=== PATIENT | female | born 1945 | race Caucasian/White ===

== ENCOUNTER 2019-06-10 20:22 | Inpatient (IN) | payer MEDICARE, OTHER ==
[2019-06-10] MEDS: HYDROCODONE/APAP (10/325) TAB PO (20:39)
[2019-06-10] MEDS: ONDANSETRON (ODT) 4 MG TAB ODT (20:39)
[2019-06-10 21:29] LABS: ADD MAN DIFF? NO
[2019-06-10 21:35] LABS: ADD UMIC NO; UR ASCORBIC ACID NEGATIVE (NEGATIVE); UR BILIRUBIN (Dip) NEGATIVE (NEGATIVE); UR BLOOD (Dip) NEGATIVE (NEGATIVE); UR CLARITY CLEAR (CLEAR); UR COLOR STRAW (YELLOW); UR GLUCOSE (Dip) NEGATIVE (NEGATIVE); UR KETONES (Dip) NEGATIVE (NEGATIVE); UR LEUKOCYTE ESTERASE (Dip) NEGATIVE Leu/ul (NEGATIVE); UR NITRITE (Dip) NEGATIVE (NEGATIVE); UR SPECIFIC GRAVITY (Dip) 1.008 (1.003-1.030); UR TOTAL PROTEIN (Dip) NEGATIVE (NEGATIVE); UR UROBILINOGEN (Dip) NEGATIVE (NEGATIVE)
[2019-06-10 21:51] LABS: INR 1.05; PROTIME 13.8 Sec (11.9-14.9); PT RATIO 1.1
[2019-06-10 21:52] LABS: PARTIAL THROMBOPLASTIN TIME 22.1 Sec (23.0-35.0)
[2019-06-10 21:53] LABS: ANION GAP 6 (5-13); BLOOD UREA NITROGEN 18 mg/dl (7-20); CARBON DIOXIDE 27 mmol/L (21-31); CHLORIDE 108 mmol/L (97-110); CREATININE 0.72 mg/dl (0.44-1.00); GLUCOSE 108 mg/dl (70-220); SODIUM 141 mmol/L (135-144)
[2019-06-10] MEDS ORDERED: ONDANSETRON 4 MG INJ IV ×2 (22:00→22:30)
[2019-06-10] MEDS ORDERED: ACETAMINOPHEN 325 MG TAB PO ×2 (22:00→22:30)
[2019-06-10 22:04] LABS: TROPONIN-I < 0.012 ng/ml (0.000-0.120)
[2019-06-10 22:17] LABS: BASOPHILS % 0.1 % (0.0-2.0); EOSINOPHILS # 0.1 10^3/ul (0.0-0.5); EOSINOPHILS % 0.9 % (0.0-7.0); HEMATOCRIT 36.8 % (37.0-47.0); HEMOGLOBIN 12.1 g/dl (12.0-16.0); LYMPHOCYTES # 1.1 10^3/ul (0.8-2.9); LYMPHOCYTES % 13.2 % (15.0-51.0); MEAN CORPUSCULAR HEMOGLOBIN 32.2 pg (29.0-33.0); MEAN CORPUSCULAR HGB CONC 32.9 g/dl (32.0-37.0); MEAN CORPUSCULAR VOLUME 97.9 fl (82.0-101.0); MEAN PLATELET VOLUME 9.2 fl (7.4-10.4); MONOCYTE # 0.5 10^3/ul (0.3-0.9); MONOCYTES % 6.6 % (0.0-11.0); NEUTROPHIL # 6.5 10^3/ul (1.6-7.5); NEUTROPHILS % 78.7 % (39.0-77.0); PLATELET COUNT 253 10^3/UL (140-415); RED BLOOD COUNT 3.76 10^6/ul (4.20-5.40)
[2019-06-10 22:17] LABS: WHITE BLOOD COUNT 8.2 10^3/ul (4.8-10.8)
[2019-06-10] MEDS ORDERED: NACL 0.9% 3 ML SYG IV (22:30)
[2019-06-10] MEDS ORDERED: DOCUSATE SODIUM 100 MG CAP PO (22:30)
[2019-06-10] MEDS ORDERED: HYDROCODONE/APAP (5/325) TAB PO (22:30)
[2019-06-11] MEDS: SOD CHLORIDE 0.9% 1,000 ML IV ×2 (02:15→12:30)
[2019-06-11] MEDS: morphine 2 MG INJ IV (04:15)
[2019-06-11 05:33] LABS: ADD MAN DIFF? NO
[2019-06-11 05:43] LABS: WHITE BLOOD COUNT 7.8 10^3/ul (4.8-10.8)
[2019-06-11 05:43] LABS: BASOPHILS % 0.3 % (0.0-2.0); EOSINOPHILS # 0.1 10^3/ul (0.0-0.5); EOSINOPHILS % 0.9 % (0.0-7.0); HEMATOCRIT 34.1 % (37.0-47.0); LYMPHOCYTES # 1.5 10^3/ul (0.8-2.9); LYMPHOCYTES % 18.9 % (15.0-51.0); MEAN CORPUSCULAR HEMOGLOBIN 32.1 pg (29.0-33.0); MEAN CORPUSCULAR HGB CONC 32.3 g/dl (32.0-37.0); MEAN CORPUSCULAR VOLUME 99.4 fl (82.0-101.0); MEAN PLATELET VOLUME 9.5 fl (7.4-10.4); MONOCYTE # 0.6 10^3/ul (0.3-0.9); NEUTROPHIL # 5.6 10^3/ul (1.6-7.5); NEUTROPHILS % 71.5 % (39.0-77.0); PLATELET COUNT 232 10^3/UL (140-415); RED BLOOD COUNT 3.43 10^6/ul (4.20-5.40); RED CELL DISTRIBUTION WIDTH 12.9 % (11.5-14.5)
[2019-06-11 06:05] LABS: HEMOGLOBIN A1C 5.1 % (0-5.9)
[2019-06-11 06:09] LABS: ALANINE AMINOTRANSFERASE 20 IU/L (13-69); ALBUMIN 3.3 g/dl (3.3-4.9); ALBUMIN/GLOBULIN RATIO 1.13; ALKALINE PHOSPHATASE 56 IU/L (42-121); ANION GAP 5 (5-13); ASPARTATE AMINO TRANSFERASE 18 IU/L (15-46); BILIRUBIN,INDIRECT 0.7 mg/dl (0-1.1); BILIRUBIN,TOTAL 0.7 mg/dl (0.2-1.3); BLOOD UREA NITROGEN 16 mg/dl (7-20); CALCIUM 8.5 mg/dl (8.4-10.2); CARBON DIOXIDE 30 mmol/L (21-31); CHLORIDE 106 mmol/L (97-110); CREATININE 0.74 mg/dl (0.44-1.00); GLUCOSE 95 mg/dl (70-220); MAGNESIUM 2.1 mg/dl (1.7-2.5); POTASSIUM 3.5 mmol/L (3.5-5.1); SODIUM 141 mmol/L (135-144); TOTAL PROTEIN 6.2 g/dl (6.1-8.1)
[2019-06-11] MEDS: LEVOTHYROXINE 25 MCG TAB PO (08:24)
[2019-06-11] MEDS: HYDROmorphONE 0.5 MG/0.5 ML SYG IV (09:17)
[2019-06-11] MEDS ORDERED: GLYCOPYRROLATE 0.4 MG INJ (12:21)
[2019-06-11] MEDS ORDERED: MIDAZOLAM 1 MG/ML 2 ML INJ (12:21)
[2019-06-11] MEDS ORDERED: ONDANSETRON 4 MG INJ (12:21)
[2019-06-11] MEDS ORDERED: NEOSTIGMINE 3 MG/3 ML SYRINGE (12:21)
[2019-06-11] MEDS ORDERED: ROPIVACAINE 0.5 % 30 ML VIAL (12:21)
[2019-06-11] MEDS ORDERED: CEFAZOLIN 1 GM INJ (12:21)
[2019-06-11] MEDS ORDERED: FENTAnyl 50 MCG/ML VIAL (12:21)
[2019-06-11] MEDS ORDERED: ROCURONIUM 50 MG INJ (12:21)
[2019-06-11] MEDS ORDERED: DEXAMETHASONE 4 MG/ML 5 ML INJ (12:21)
[2019-06-11] MEDS ORDERED: PROPOFOL 20 ML (12:21)
[2019-06-11] MEDS: POLYMYXIN/BACITRACIN 1L IRRIG IRR (14:47)
[2019-06-11] MEDS: MEPERIDINE 25 MG INJ IV (15:23)
[2019-06-11] MEDS: ONDANSETRON 4 MG INJ IV (15:24)
[2019-06-11] MEDS ORDERED: oxyCODONE 5 MG TAB PO ×2 (15:30)
[2019-06-11] MEDS ORDERED: hydrALAzine 20 MG INJ IV (15:30)
[2019-06-11] MEDS ORDERED: NACL 0.9% 3 ML SYG IV (15:30)
[2019-06-11] MEDS ORDERED: DIPHENHYDRAMINE 50 MG INJ IV ×2 (15:30)
[2019-06-11] MEDS ORDERED: OXYCODONE/ACETAMINOPHEN (5/325) TAB PO ×2 (15:30)
[2019-06-11] MEDS ORDERED: ALBUTEROL 0.083% (NEB) 2.5 MG/3 ML AMP HHN (15:30)
[2019-06-11] MEDS ORDERED: FENTAnyl 50 MCG/ML VIAL IV ×3 (15:30)
[2019-06-11] MEDS ORDERED: MIDAZOLAM 1 MG/ML 2 ML INJ IV (15:30)
[2019-06-11] MEDS ORDERED: IPRATROPIUM (NEB) 0.5 MG/2.5 ML AMP HHN (15:30)
[2019-06-11] MEDS ORDERED: TRIMETHOBENZAMIDE 100 MG/ML VIAL IM (15:30)
[2019-06-11] MEDS ORDERED: EPHEDrine 25 MG/5 ML SYG IV (15:30)
[2019-06-11] MEDS ORDERED: LABETALOL HCL 20MG INJ IV (15:30)
[2019-06-11] MEDS ORDERED: HYDROmorphONE 1 MG/5 ML IV SYRINGE IV ×3 (15:30)
[2019-06-11] MEDS ORDERED: HYDROmorphONE 1 MG/ML SYG IV (15:30)
[2019-06-11] MEDS ORDERED: BISACODYL 10 MG SUPP PR (15:30)
[2019-06-11] MEDS ORDERED: NA PHOSPHATE/BIPHOS 133 ML ENEMA PR (15:30)
[2019-06-11] MEDS ORDERED: NALOXONE (0.4 MG/ML) INJ IV (15:30)
[2019-06-11] MEDS ORDERED: MAGNESIUM HYDROXIDE 30ML CUP PO (15:30)
[2019-06-11] MEDS ORDERED: SENNA/DOCUSATE NA (8.6MG/50MG) TAB PO (15:30)
[2019-06-11] MEDS: DOCUSATE SODIUM 100 MG CAP PO (16:02)
[2019-06-11] MEDS: CEFAZOLIN 2 GM/50 ML (PMX) 50 ML IVPB ×2 (16:03→23:00)
[2019-06-11] MEDS: LACTATED RINGER'S 1,000 ML IV (16:55)
[2019-06-11] MEDS: OLANZAPINE 2.5 MG TAB PO (21:56)
[2019-06-11] MEDS: ACETAMINOPHEN 500 MG TAB PO (21:56)
[2019-06-12] MEDS: SOD CHLORIDE 0.9% 1,000 ML IV ×2 (01:00→13:30)
[2019-06-12 04:56] LABS: ADD MAN DIFF? NO
[2019-06-12 05:03] LABS: BASOPHILS % 0.1 % (0.0-2.0); EOSINOPHILS % 0.2 % (0.0-7.0); HEMATOCRIT 27.6 % (37.0-47.0); LYMPHOCYTES # 0.8 10^3/ul (0.8-2.9); LYMPHOCYTES % 8.6 % (15.0-51.0); MEAN CORPUSCULAR HGB CONC 32.6 g/dl (32.0-37.0); MEAN CORPUSCULAR VOLUME 98.2 fl (82.0-101.0); MEAN PLATELET VOLUME 9.5 fl (7.4-10.4); MONOCYTE # 0.6 10^3/ul (0.3-0.9); MONOCYTES % 6.7 % (0.0-11.0); NEUTROPHIL # 7.7 10^3/ul (1.6-7.5); NEUTROPHILS % 84.1 % (39.0-77.0); PLATELET COUNT 148 10^3/UL (140-415); RED BLOOD COUNT 2.81 10^6/ul (4.20-5.40)
[2019-06-12 05:03] LABS: WHITE BLOOD COUNT 9.2 10^3/ul (4.8-10.8)
[2019-06-12 05:19] LABS: ANION GAP 4 (5-13); BLOOD UREA NITROGEN 11 mg/dl (7-20); CALCIUM 8.5 mg/dl (8.4-10.2); CARBON DIOXIDE 28 mmol/L (21-31); CHLORIDE 107 mmol/L (97-110); CREATININE 0.69 mg/dl (0.44-1.00); GLUCOSE 140 mg/dl (70-220); POTASSIUM 3.7 mmol/L (3.5-5.1); SODIUM 139 mmol/L (135-144)
[2019-06-12] MEDS ORDERED: PANTOPRAZOLE (EC) 40 MG TAB PO (06:00)
[2019-06-12 06:33] LABS: MAGNESIUM 1.9 mg/dl (1.7-2.5)
[2019-06-12 06:33] LABS: PHOSPHORUS 3.2 mg/dl (2.5-4.9)
[2019-06-12] MEDS: LEVOTHYROXINE 25 MCG TAB PO (06:36)
[2019-06-12] MEDS: LACTATED RINGER'S 1,000 ML IV (06:37)
[2019-06-12] MEDS: ACETAMINOPHEN 500 MG TAB PO ×3 (06:37→20:39)
[2019-06-12 07:03] LABS: THYROID STIMULATING HORMONE 0.561 MIU/L (0.465-4.680)
[2019-06-12 07:04] LABS: TRIIODOTHYRONINE 0.55 ng/ml (0.97-1.69)
[2019-06-12] MEDS: CEFAZOLIN 2 GM/50 ML (PMX) 50 ML IVPB (08:14)
[2019-06-12 09:12] LABS: ADD UMIC NO; UR ASCORBIC ACID NEGATIVE (NEGATIVE); UR BILIRUBIN (Dip) NEGATIVE (NEGATIVE); UR BLOOD (Dip) NEGATIVE (NEGATIVE); UR CLARITY CLEAR (CLEAR); UR COLOR YELLOW (YELLOW); UR GLUCOSE (Dip) NEGATIVE (NEGATIVE); UR KETONES (Dip) TRACE mg/dL (NEGATIVE); UR LEUKOCYTE ESTERASE (Dip) NEGATIVE Leu/ul (NEGATIVE); UR NITRITE (Dip) NEGATIVE (NEGATIVE); UR TOTAL PROTEIN (Dip) NEGATIVE (NEGATIVE); UR UROBILINOGEN (Dip) NEGATIVE (NEGATIVE)
[2019-06-12] MEDS: DOCUSATE SODIUM 100 MG CAP PO ×2 (09:41→20:37)
[2019-06-12] MEDS: FAMOTIDINE 20 MG TAB PO (09:41)
[2019-06-12] MEDS: ENOXAPARIN 40 MG/0.4 ML SYG SC (09:42)
[2019-06-12] MEDS: morphine 2 MG INJ IV (14:19)
[2019-06-12] MEDS ORDERED: ONDANSETRON 4 MG INJ IV (15:30)
[2019-06-12] MEDS: OLANZAPINE 2.5 MG TAB PO (20:37)
[2019-06-13 05:25] LABS: ADD MAN DIFF? NO
[2019-06-13 05:32] LABS: BASOPHILS % 0.6 % (0.0-2.0); EOSINOPHILS # 0.4 10^3/ul (0.0-0.5); EOSINOPHILS % 4.9 % (0.0-7.0); HEMATOCRIT 24.6 % (37.0-47.0); LYMPHOCYTES # 1.5 10^3/ul (0.8-2.9); LYMPHOCYTES % 20.7 % (15.0-51.0); MEAN CORPUSCULAR HEMOGLOBIN 31.7 pg (29.0-33.0); MEAN CORPUSCULAR HGB CONC 32.5 g/dl (32.0-37.0); MEAN CORPUSCULAR VOLUME 97.6 fl (82.0-101.0); MONOCYTE # 0.6 10^3/ul (0.3-0.9); MONOCYTES % 8.5 % (0.0-11.0); NEUTROPHIL # 4.7 10^3/ul (1.6-7.5); PLATELET COUNT 152 10^3/UL (140-415); RED BLOOD COUNT 2.52 10^6/ul (4.20-5.40); RED CELL DISTRIBUTION WIDTH 13.3 % (11.5-14.5)
[2019-06-13 05:32] LABS: WHITE BLOOD COUNT 7.2 10^3/ul (4.8-10.8)
[2019-06-13] MEDS: LEVOTHYROXINE 25 MCG TAB PO (05:48)
[2019-06-13 05:49] LABS: INR 1.46; PROTIME 17.8 Sec (11.9-14.9); PT RATIO 1.4
[2019-06-13] MEDS: ACETAMINOPHEN 500 MG TAB PO ×3 (05:49→21:37)
[2019-06-13 06:02] LABS: ANION GAP 1 (5-13); BLOOD UREA NITROGEN 12 mg/dl (7-20); CALCIUM 8.1 mg/dl (8.4-10.2); CARBON DIOXIDE 32 mmol/L (21-31); CHLORIDE 108 mmol/L (97-110); GLUCOSE 94 mg/dl (70-220); POTASSIUM 3.1 mmol/L (3.5-5.1); SODIUM 141 mmol/L (135-144)
[2019-06-13] MEDS: FAMOTIDINE 20 MG TAB PO (09:43)
[2019-06-13] MEDS: ENOXAPARIN 40 MG/0.4 ML SYG SC (09:44)
[2019-06-13] MEDS: DOCUSATE SODIUM 100 MG CAP PO ×2 (09:44→21:35)
[2019-06-13] MEDS: BETHANECHOL 25 MG TAB PO (09:44)
[2019-06-13] MEDS: POTASSIUM CHLORIDE (SR) 20 MEQ TAB PO (12:02)
[2019-06-13] MEDS: BISACODYL (EC) 5 MG TAB PO (21:36)
[2019-06-13] MEDS: OLANZAPINE 2.5 MG TAB PO (21:37)
[2019-06-14] MEDS: LEVOTHYROXINE 25 MCG TAB PO (06:26)
[2019-06-14 06:30] LABS: ADD MAN DIFF? NO
[2019-06-14 06:43] LABS: BASOPHILS % 0.6 % (0.0-2.0); EOSINOPHILS # 0.4 10^3/ul (0.0-0.5); EOSINOPHILS % 7.5 % (0.0-7.0); HEMATOCRIT 22.6 % (37.0-47.0); HEMOGLOBIN 7.3 g/dl (12.0-16.0); LYMPHOCYTES # 1.3 10^3/ul (0.8-2.9); LYMPHOCYTES % 25.4 % (15.0-51.0); MEAN CORPUSCULAR HEMOGLOBIN 32.6 pg (29.0-33.0); MEAN CORPUSCULAR HGB CONC 32.3 g/dl (32.0-37.0); MEAN CORPUSCULAR VOLUME 100.9 fl (82.0-101.0); MEAN PLATELET VOLUME 10.1 fl (7.4-10.4); MONOCYTE # 0.5 10^3/ul (0.3-0.9); MONOCYTES % 10.1 % (0.0-11.0); NEUTROPHIL # 2.8 10^3/ul (1.6-7.5); PLATELET COUNT 156 10^3/UL (140-415); RED BLOOD COUNT 2.24 10^6/ul (4.20-5.40); RED CELL DISTRIBUTION WIDTH 13.4 % (11.5-14.5)
[2019-06-14 06:43] LABS: WHITE BLOOD COUNT 5.1 10^3/ul (4.8-10.8)
[2019-06-14 06:59] LABS: INR 1.26; PROTIME 15.9 Sec (11.9-14.9); PT RATIO 1.2
[2019-06-14 07:03] LABS: ANION GAP 1 (5-13); BLOOD UREA NITROGEN 14 mg/dl (7-20); CARBON DIOXIDE 31 mmol/L (21-31); CHLORIDE 108 mmol/L (97-110); CREATININE 0.63 mg/dl (0.44-1.00); GLUCOSE 85 mg/dl (70-220); POTASSIUM 3.7 mmol/L (3.5-5.1); SODIUM 140 mmol/L (135-144)
[2019-06-14] MEDS: DOCUSATE SODIUM 100 MG CAP PO (09:24)
[2019-06-14] MEDS: FAMOTIDINE 20 MG TAB PO (09:25)
[2019-06-14] MEDS: ENOXAPARIN 40 MG/0.4 ML SYG SC (09:26)
== END 2019-06-14 18:40 | DRG 481 ==
LOC: MS1 21:43 → E/R 20:22
PROC: 0QH706Z Insertion of Intramedullary Internal Fixation Device into Left Upper Femur, Open Approach (ICD-10-PCS; principal; 2019-06-11 12:10)
DX: S72.142A Displaced intertrochanteric fracture of left femur, initial encounter for closed fracture (principal); S22.31XA Fracture of one rib, right side, initial encounter for closed fracture; I27.20 Pulmonary hypertension, unspecified; F20.9 Schizophrenia, unspecified; F03.90 Unspecified dementia, unspecified severity, without behavioral disturbance, psychotic disturbance, mood disturbance, and anxiety; E03.9 Hypothyroidism, unspecified; R53.81 Other malaise; M19.90 Unspecified osteoarthritis, unspecified site; R62.7 Adult failure to thrive; Z68.24 Body mass index [BMI] 24.0-24.9, adult; W03.XXXA Other fall on same level due to collision with another person, initial encounter; Y93.01 Activity, walking, marching and hiking; Y92.048 Other place in boarding-house as the place of occurrence of the external cause; Y99.8 Other external cause status
CPT/HCPCS: 70450; 71045; 71100; 72125; 72170; 73500; 73550; 80048; 80053; 81003; 82306; 83036; 83735; 84100; 84439; 84443; 84480; 84484; 85025; 85610; 85730; 86850; 86900; 86901; 87086; 93005; 93306; 97110; 97116; 97162; 97165; 97530; 97535; 99285-25

== ENCOUNTER 2019-06-14 18:59 | Inpatient (IN) | payer MEDICARE, OTHER ==
[2019-06-14] MEDS ORDERED: BISACODYL 10 MG SUPP PR (20:30)
[2019-06-14] MEDS ORDERED: MAGNESIUM HYDROXIDE 30ML CUP PO (20:30)
[2019-06-14] MEDS: DOCUSATE SODIUM 100 MG CAP PO (21:36)
[2019-06-14] MEDS: OLANZAPINE 2.5 MG TAB PO (21:36)
[2019-06-14] MEDS: SENNA TAB PO (21:36)
[2019-06-14] MEDS ORDERED: morphine 2 MG INJ IV (22:30)
[2019-06-14] MEDS ORDERED: BISACODYL (EC) 5 MG TAB PO (22:30)
[2019-06-14] MEDS ORDERED: DIPHENHYDRAMINE 50 MG INJ IV (22:30)
[2019-06-14] MEDS ORDERED: oxyCODONE 5 MG TAB PO (22:30)
[2019-06-14] MEDS ORDERED: DOCUSATE SODIUM 100 MG CAP PO (22:30)
[2019-06-14] MEDS ORDERED: NA PHOSPHATE/BIPHOS 133 ML ENEMA PR (22:30)
[2019-06-14] MEDS ORDERED: NALOXONE (0.4 MG/ML) INJ IV (22:30)
[2019-06-14] MEDS ORDERED: ONDANSETRON 4 MG INJ IV (22:30)
[2019-06-14] MEDS ORDERED: HYDROmorphONE 0.5 MG/0.5 ML SYG IV (22:30)
[2019-06-14 22:52] LABS: ADD UMIC NO; UR ASCORBIC ACID NEGATIVE (NEGATIVE); UR BILIRUBIN (Dip) NEGATIVE (NEGATIVE); UR BLOOD (Dip) NEGATIVE (NEGATIVE); UR CLARITY CLEAR (CLEAR); UR COLOR YELLOW (YELLOW); UR GLUCOSE (Dip) NEGATIVE (NEGATIVE); UR KETONES (Dip) NEGATIVE (NEGATIVE); UR LEUKOCYTE ESTERASE (Dip) NEGATIVE Leu/ul (NEGATIVE); UR NITRITE (Dip) NEGATIVE (NEGATIVE); UR SPECIFIC GRAVITY (Dip) 1.015 (1.003-1.030); UR TOTAL PROTEIN (Dip) NEGATIVE (NEGATIVE); UR UROBILINOGEN (Dip) 2+ mg/dL (NEGATIVE)
[2019-06-15 04:27] LABS: ADD MAN DIFF? NO
[2019-06-15 04:30] LABS: WHITE BLOOD COUNT 4.7 10^3/ul (4.8-10.8)
[2019-06-15 04:30] LABS: BASOPHILS % 0.6 % (0.0-2.0); EOSINOPHILS # 0.4 10^3/ul (0.0-0.5); EOSINOPHILS % 7.9 % (0.0-7.0); HEMATOCRIT 21.9 % (37.0-47.0); HEMOGLOBIN 7.2 g/dl (12.0-16.0); LYMPHOCYTES # 1.2 10^3/ul (0.8-2.9); LYMPHOCYTES % 25.7 % (15.0-51.0); MEAN CORPUSCULAR HEMOGLOBIN 32.6 pg (29.0-33.0); MEAN CORPUSCULAR HGB CONC 32.9 g/dl (32.0-37.0); MEAN CORPUSCULAR VOLUME 99.1 fl (82.0-101.0); MEAN PLATELET VOLUME 9.8 fl (7.4-10.4); MONOCYTE # 0.5 10^3/ul (0.3-0.9); MONOCYTES % 10.9 % (0.0-11.0); NEUTROPHIL # 2.5 10^3/ul (1.6-7.5); NEUTROPHILS % 54.5 % (39.0-77.0); PLATELET COUNT 197 10^3/UL (140-415); RED BLOOD COUNT 2.21 10^6/ul (4.20-5.40); RED CELL DISTRIBUTION WIDTH 13.4 % (11.5-14.5)
[2019-06-15 04:48] LABS: ALANINE AMINOTRANSFERASE 27 IU/L (13-69); ALBUMIN 2.6 g/dl (3.3-4.9); ALBUMIN/GLOBULIN RATIO 0.92; ALKALINE PHOSPHATASE 53 IU/L (42-121); ANION GAP 3 (5-13); ASPARTATE AMINO TRANSFERASE 22 IU/L (15-46); BILIRUBIN,INDIRECT 0.8 mg/dl (0-1.1); BILIRUBIN,TOTAL 0.8 mg/dl (0.2-1.3); BLOOD UREA NITROGEN 10 mg/dl (7-20); CALCIUM 8.2 mg/dl (8.4-10.2); CARBON DIOXIDE 31 mmol/L (21-31); CHLORIDE 106 mmol/L (97-110); GLUCOSE 91 mg/dl (70-220); POTASSIUM 3.7 mmol/L (3.5-5.1); SODIUM 140 mmol/L (135-144); TOTAL PROTEIN 5.4 g/dl (6.1-8.1)
[2019-06-15] MEDS: LEVOTHYROXINE 25 MCG TAB PO (06:02)
[2019-06-15] MEDS: FAMOTIDINE 20 MG TAB PO (08:39)
[2019-06-15] MEDS: DOCUSATE SODIUM 100 MG CAP PO ×2 (08:39→21:19)
[2019-06-15] MEDS: CYANOCOBALAMIN 500 MCG TAB PO (08:39)
[2019-06-15] MEDS: oxyCODONE 5 MG TAB PO (08:39)
[2019-06-15] MEDS: FUROSEMIDE 20 MG TAB PO (08:40)
[2019-06-15] MEDS: ENOXAPARIN 40 MG/0.4 ML SYG SC (08:41)
[2019-06-15 13:54] LABS: IRON 17 ug/dl (35-150)
[2019-06-15 13:55] LABS: CHOLESTEROL 147 mg/dl (100-200)
[2019-06-15 13:55] LABS: CHOL/HDL RATIO 5.2 RATIO; HDL CHOLESTEROL 28 mg/dl (33-92); LDL CHOLESTEROL,CALCULATED 85 mg/dl; TRIGLYCERIDES 170 mg/dl (0-149)
[2019-06-15 14:00] LABS: HEMOGLOBIN A1C 5.4 % (0-5.9)
[2019-06-15] MEDS: ASPIRIN 81 MG TAB PO (14:00)
[2019-06-15 14:03] LABS: % IRON SATURATION 8 % SAT (22-52); TOTAL IRON BINDING CAPACITY 201 ug/dl (241-421)
[2019-06-15 14:31] LABS: FERRITIN 84.9 ng/ml (11.1-264.0)
[2019-06-15 15:01] LABS: FOLATE 8.5 ng/ml (2.8-20.0)
[2019-06-15] MEDS: OLANZAPINE 2.5 MG TAB PO (21:19)
[2019-06-15] MEDS: SENNA TAB PO (21:19)
[2019-06-15] MEDS: ATORVASTATIN 10 MG TAB PO (21:19)
[2019-06-16] MEDS: LEVOTHYROXINE 25 MCG TAB PO (05:46)
[2019-06-16] MEDS: ENOXAPARIN 40 MG/0.4 ML SYG SC (09:08)
[2019-06-16] MEDS: FAMOTIDINE 20 MG TAB PO (09:09)
[2019-06-16] MEDS: CYANOCOBALAMIN 500 MCG TAB PO (09:09)
[2019-06-16] MEDS: FUROSEMIDE 20 MG TAB PO (09:09)
[2019-06-16] MEDS: ASPIRIN 81 MG TAB PO (09:09)
[2019-06-16] MEDS: DOCUSATE SODIUM 100 MG CAP PO (09:09)
[2019-06-16] MEDS: ACETAMINOPHEN 325 MG TAB PO ×2 (12:16→22:14)
[2019-06-16] MEDS ORDERED: HYDROCODONE/APAP (5/325) TAB PO (13:30)
[2019-06-16] MEDS: FERROUS SULFATE (EC) 325 MG TAB PO (14:28)
[2019-06-16] MEDS: DOCUSATE SODIUM 10 MG/ML (10ML CUP) PO (21:03)
[2019-06-16] MEDS: OLANZAPINE 2.5 MG TAB PO (21:03)
[2019-06-16] MEDS: ATORVASTATIN 10 MG TAB PO (21:03)
[2019-06-16] MEDS: SENNA TAB PO (21:03)
[2019-06-17] MEDS: LEVOTHYROXINE 25 MCG TAB PO (06:50)
[2019-06-17] MEDS: CYANOCOBALAMIN 500 MCG TAB PO (09:21)
[2019-06-17] MEDS: FAMOTIDINE 20 MG TAB PO (09:23)
[2019-06-17] MEDS: FUROSEMIDE 20 MG TAB PO (09:25)
[2019-06-17] MEDS: CLOTRIMAZOLE 1% 30 GM CR TOP (09:26)
[2019-06-17] MEDS: ENOXAPARIN 40 MG/0.4 ML SYG SC (09:26)
[2019-06-17] MEDS: ASPIRIN 81 MG TAB PO (09:27)
[2019-06-17] MEDS: DOCUSATE SODIUM 10 MG/ML (10ML CUP) PO ×2 (09:27→20:09)
[2019-06-17] MEDS: ACETAMINOPHEN 325 MG TAB PO (09:38)
[2019-06-17] MEDS: FERROUS SULFATE 60 MG/ML 5ML CUP PO (13:00)
[2019-06-17] MEDS: SENNA/DOCUSATE NA (8.6MG/50MG) TAB PO (17:22)
[2019-06-17] MEDS: OLANZAPINE 2.5 MG TAB PO (20:09)
[2019-06-17] MEDS: SENNA TAB PO (20:09)
[2019-06-17] MEDS: ATORVASTATIN 10 MG TAB PO (20:09)
[2019-06-18] MEDS: LACTULOSE 30ML CUP PO (05:53)
[2019-06-18] MEDS: LEVOTHYROXINE 25 MCG TAB PO (05:53)
[2019-06-18] MEDS: FAMOTIDINE 20 MG TAB PO (08:57)
[2019-06-18] MEDS: CYANOCOBALAMIN 500 MCG TAB PO (08:57)
[2019-06-18] MEDS: ASPIRIN 81 MG TAB PO (08:57)
[2019-06-18] MEDS: DOCUSATE SODIUM 10 MG/ML (10ML CUP) PO ×2 (08:58→20:21)
[2019-06-18] MEDS: ENOXAPARIN 40 MG/0.4 ML SYG SC (08:58)
[2019-06-18] MEDS: FERROUS SULFATE 60 MG/ML 5ML CUP PO ×3 (08:58→20:20)
[2019-06-18] MEDS: CLOTRIMAZOLE 1% 30 GM CR TOP (08:58)
[2019-06-18] MEDS: FUROSEMIDE 20 MG TAB PO (09:00)
[2019-06-18] MEDS ORDERED: CHOLECALCIFEROL 2,000 UNIT CAP PO (13:00)
[2019-06-18 14:38] LABS: HEPATITIS B SURFACE ANTIGEN NEGATIVE (NEGATIVE)
[2019-06-18] MEDS: ASCORBIC ACID 500 MG TAB PO ×2 (14:45→20:20)
[2019-06-18] MEDS: CHOLECALCIFEROL 1,000 UNIT TAB PO (14:45)
[2019-06-18 14:55] LABS: HEPATITIS C VIRAL ANTIBODY NEGATIVE (NEGATIVE)
[2019-06-18] MEDS: ACETAMINOPHEN 325 MG TAB PO (15:58)
[2019-06-18 18:53] LABS: RAPID PLASMA REAGIN NONREACTIVE (NR)
[2019-06-18] MEDS: OLANZAPINE 2.5 MG TAB PO (20:18)
[2019-06-18] MEDS: ATORVASTATIN 10 MG TAB PO (20:18)
[2019-06-18] MEDS: SENNA TAB PO (20:21)
[2019-06-19] MEDS: LEVOTHYROXINE 25 MCG TAB PO (06:23)
[2019-06-19] MEDS: DOCUSATE SODIUM 10 MG/ML (10ML CUP) PO ×3 (08:37→21:00)
[2019-06-19] MEDS: FAMOTIDINE 20 MG TAB PO (08:37)
[2019-06-19] MEDS: CYANOCOBALAMIN 500 MCG TAB PO (08:37)
[2019-06-19] MEDS: FERROUS SULFATE 60 MG/ML 5ML CUP PO ×2 (08:37→20:53)
[2019-06-19] MEDS: ASPIRIN 81 MG TAB PO (08:37)
[2019-06-19] MEDS: CHOLECALCIFEROL 1,000 UNIT TAB PO (08:37)
[2019-06-19] MEDS: FUROSEMIDE 20 MG TAB PO (08:37)
[2019-06-19] MEDS: ASCORBIC ACID 500 MG TAB PO ×2 (08:37→20:53)
[2019-06-19] MEDS: ENOXAPARIN 40 MG/0.4 ML SYG SC (08:38)
[2019-06-19] MEDS: CLOTRIMAZOLE 1% 30 GM CR TOP (08:48)
[2019-06-19] MEDS: ACETAMINOPHEN 325 MG TAB PO (16:08)
[2019-06-19] MEDS: OLANZAPINE 2.5 MG TAB PO (20:53)
[2019-06-19] MEDS: ATORVASTATIN 10 MG TAB PO (20:53)
[2019-06-19] MEDS: SENNA TAB PO (21:00)
[2019-06-20] MEDS: LEVOTHYROXINE 25 MCG TAB PO (05:43)
[2019-06-20 07:01] LABS: ADD MAN DIFF? NO
[2019-06-20 07:32] LABS: BASOPHILS % 0.5 % (0.0-2.0); EOSINOPHILS # 0.1 10^3/ul (0.0-0.5); HEMATOCRIT 24.7 % (37.0-47.0); HEMOGLOBIN 7.8 g/dl (12.0-16.0); LYMPHOCYTES # 1.7 10^3/ul (0.8-2.9); LYMPHOCYTES % 27.7 % (15.0-51.0); MEAN CORPUSCULAR HEMOGLOBIN 32.6 pg (29.0-33.0); MEAN CORPUSCULAR HGB CONC 31.6 g/dl (32.0-37.0); MEAN CORPUSCULAR VOLUME 103.3 fl (82.0-101.0); MEAN PLATELET VOLUME 8.7 fl (7.4-10.4); MONOCYTE # 0.6 10^3/ul (0.3-0.9); MONOCYTES % 10.4 % (0.0-11.0); NEUTROPHIL # 3.5 10^3/ul (1.6-7.5); NEUTROPHILS % 58.7 % (39.0-77.0); PLATELET COUNT 454 10^3/UL (140-415); RED BLOOD COUNT 2.39 10^6/ul (4.20-5.40)
[2019-06-20] MEDS: FUROSEMIDE 20 MG TAB PO (09:00)
[2019-06-20] MEDS: DOCUSATE SODIUM 10 MG/ML (10ML CUP) PO ×2 (10:27→21:02)
[2019-06-20] MEDS: ACETAMINOPHEN 325 MG TAB PO (10:27)
[2019-06-20] MEDS: FAMOTIDINE 20 MG TAB PO (10:28)
[2019-06-20] MEDS: CYANOCOBALAMIN 500 MCG TAB PO (10:28)
[2019-06-20] MEDS: FERROUS SULFATE 60 MG/ML 5ML CUP PO ×2 (10:28→21:02)
[2019-06-20] MEDS: ASCORBIC ACID 500 MG TAB PO ×2 (10:28→21:02)
[2019-06-20] MEDS: CHOLECALCIFEROL 1,000 UNIT TAB PO (10:28)
[2019-06-20] MEDS: ASPIRIN 81 MG TAB PO (10:29)
[2019-06-20] MEDS: ENOXAPARIN 40 MG/0.4 ML SYG SC (10:30)
[2019-06-20] MEDS: CLOTRIMAZOLE 1% 30 GM CR TOP (10:30)
[2019-06-20] MEDS: ATORVASTATIN 10 MG TAB PO (21:01)
[2019-06-20] MEDS: SENNA TAB PO (21:01)
[2019-06-20] MEDS: OLANZAPINE 2.5 MG TAB PO (21:01)
[2019-06-20] MEDS: traMADol 50 MG TAB PO (23:39)
[2019-06-21] MEDS: LEVOTHYROXINE 25 MCG TAB PO (06:41)
[2019-06-21] MEDS: FUROSEMIDE 20 MG TAB PO (09:00)
[2019-06-21] MEDS: ENOXAPARIN 40 MG/0.4 ML SYG SC (09:24)
[2019-06-21] MEDS: CHOLECALCIFEROL 1,000 UNIT TAB PO (09:25)
[2019-06-21] MEDS: FERROUS SULFATE 60 MG/ML 5ML CUP PO ×2 (09:25→22:19)
[2019-06-21] MEDS: ASCORBIC ACID 500 MG TAB PO ×2 (09:25→22:20)
[2019-06-21] MEDS: DOCUSATE SODIUM 10 MG/ML (10ML CUP) PO ×2 (09:25→22:20)
[2019-06-21] MEDS: ASPIRIN 81 MG TAB PO (09:25)
[2019-06-21] MEDS: FAMOTIDINE 20 MG TAB PO (09:25)
[2019-06-21] MEDS: CYANOCOBALAMIN 500 MCG TAB PO (09:25)
[2019-06-21] MEDS: CLOTRIMAZOLE 1% 30 GM CR TOP (09:27)
[2019-06-21] MEDS: traMADol 50 MG TAB PO (18:54)
[2019-06-21] MEDS: ATORVASTATIN 10 MG TAB PO (22:20)
[2019-06-21] MEDS: SENNA TAB PO (22:20)
[2019-06-21] MEDS: OLANZAPINE 2.5 MG TAB PO (22:20)
[2019-06-22] MEDS: LEVOTHYROXINE 25 MCG TAB PO (06:52)
[2019-06-22] MEDS: FERROUS SULFATE 60 MG/ML 5ML CUP PO ×2 (09:34→21:46)
[2019-06-22] MEDS: DOCUSATE SODIUM 10 MG/ML (10ML CUP) PO ×2 (09:34→21:46)
[2019-06-22] MEDS: ASCORBIC ACID 500 MG TAB PO ×2 (09:35→21:46)
[2019-06-22] MEDS: FUROSEMIDE 20 MG TAB PO (09:35)
[2019-06-22] MEDS: FAMOTIDINE 20 MG TAB PO (09:35)
[2019-06-22] MEDS: CHOLECALCIFEROL 1,000 UNIT TAB PO (09:35)
[2019-06-22] MEDS: CYANOCOBALAMIN 500 MCG TAB PO (09:35)
[2019-06-22] MEDS: ASPIRIN 81 MG TAB PO (09:35)
[2019-06-22] MEDS: ENOXAPARIN 40 MG/0.4 ML SYG SC (09:37)
[2019-06-22] MEDS: CLOTRIMAZOLE 1% 30 GM CR TOP (09:44)
[2019-06-22] MEDS: ATORVASTATIN 10 MG TAB PO (21:46)
[2019-06-22] MEDS: SENNA TAB PO (21:46)
[2019-06-22] MEDS: OLANZAPINE 2.5 MG TAB PO (21:46)
[2019-06-23] MEDS: LEVOTHYROXINE 25 MCG TAB PO (06:59)
[2019-06-23] MEDS: FERROUS SULFATE 60 MG/ML 5ML CUP PO (09:36)
[2019-06-23] MEDS: ASPIRIN 81 MG TAB PO (09:36)
[2019-06-23] MEDS: ASCORBIC ACID 500 MG TAB PO (09:36)
[2019-06-23] MEDS: CYANOCOBALAMIN 500 MCG TAB PO (09:36)
[2019-06-23] MEDS: FAMOTIDINE 20 MG TAB PO (09:36)
[2019-06-23] MEDS: DOCUSATE SODIUM 10 MG/ML (10ML CUP) PO (09:36)
[2019-06-23] MEDS: CHOLECALCIFEROL 1,000 UNIT TAB PO (09:36)
[2019-06-23] MEDS: ENOXAPARIN 40 MG/0.4 ML SYG SC (09:37)
[2019-06-23] MEDS: FUROSEMIDE 20 MG TAB PO (09:37)
[2019-06-23] MEDS: CLOTRIMAZOLE 1% 30 GM CR TOP (09:46)
== END 2019-06-23 16:45 | DRG 559 ==
LOC: VRC 18:59
DX: S72.142D Displaced intertrochanteric fracture of left femur, subsequent encounter for closed fracture with routine healing (principal); G92 Toxic encephalopathy; R13.12 Dysphagia, oropharyngeal phase; R58 Hemorrhage, not elsewhere classified; M51.36 Other intervertebral disc degeneration, lumbar region; Z74.09 Other reduced mobility; D64.9 Anemia, unspecified; E03.9 Hypothyroidism, unspecified; Z98.890 Other specified postprocedural states; Z86.73 Personal history of transient ischemic attack (TIA), and cerebral infarction without residual deficits; R53.81 Other malaise; F20.9 Schizophrenia, unspecified; F25.9 Schizoaffective disorder, unspecified; F03.90 Unspecified dementia, unspecified severity, without behavioral disturbance, psychotic disturbance, mood disturbance, and anxiety
CPT/HCPCS: 70450; 72192; 73700; 74230; 80053; 80061; 81003; 82607; 82728; 82746; 83036; 83540; 85025; 86592; 86803; 87086; 87340; 92507; 92523; 92526; 92610; 92611; 97110; 97112; 97116; 97163; 97167; 97530; 97535; 97542